=== PATIENT | female | born 1950 | race Caucasian/White ===

== ENCOUNTER 2024-08-04 09:30 | Day surgery (SDC) | payer MEDICARE, SELFPAY ==
[2024-08-03 15:24] VITALS: BMI 26.6
[2024-08-04] VITALS (8 sets, daily range): BP systolic 98–167; BP diastolic 65–87; PULSE 86–97; RESP 12–22; TEMP 36.2–36.6; O2SAT 95–99; BMI 26.6
[2024-08-04] MEDS: DiphenhydrAMINE INJ 50 MG/ML VIAL 25 MG IV (11:19)
[2024-08-04] MEDS: MIDAZOLAM INJ 1 MG/ML VIAL 2 ML (ASD USE ONLY) 2 MG IV (11:23)
[2024-08-04] MEDS: fentaNYL CIT INJ 50 mCg/ML AMP 2ML (ASD USE ONLY) IV (11:23)
--- NOTE | 2024-08-04 11:52 | SUR.PHASEII ---
1131: Pt received for recovery. Report from Manny ROME. Pt groggy. Easily aroused with eye opening. Resp even, unlabored. VS stable. No c/o pain, discomfort. 1153: Pt more awake, alert. Sitting up tolerating po fluids with no difficulty swallowing and no n/v.
--- NOTE | 2024-08-04 13:38 | SUR.PHASEII ---
1214: Pt fully awake, oriented x3. Pt assisted to restroom. Ambulation steady. Pt and stated understanding of discharge instructions. Pt discharged from [facility] in stable condition.
== END 2024-08-04 12:14 | disposition home or self-care (01) ==
PROVIDERS: PCP Registered Nurse General Practice; Referring Provider Specialist; Visit Provider Specialist
PROC: 0DBE8ZX Excision of Large Intestine, Via Natural or Artificial Opening Endoscopic, Diagnostic (ICD-10-PCS; CPT 45380; principal; 2024-08-04 09:30)
DX: K64.9 Unspecified hemorrhoids (principal); K57.30 Diverticulosis of large intestine without perforation or abscess without bleeding
CPT/HCPCS: 45330; J1200; J2250; J3010

== ENCOUNTER → 2024-09-11 | Outpatient (CLI) | payer MEDICARE, SELFPAY ==
[2024-09-11 10:28] LABS: Alanine Aminotransferase 21 U/L (10-49); Albumin, Serum 4.4 gm/dL (3.4-4.8); Albumin/Globulin Ratio 1.7 (1.2-2.2); Alkaline Phosphatase 55 U/L (46-116); Anion Gap 6 (7-16); Aspartate Amino Transferase 24 U/L (0-34); BUN/Creatinine Ratio 15 Ratio (12-20); Bilirubin,Total 0.5 mg/dL (0.3-1.2); Blood Urea Nitrogen 12 mg/dL (9-23); Calcium 10.5 mg/dL (8.3-10.6); Calcium (Corrected) 10.5 mg/dL (8.5-10.1); Carbon Dioxide 30.1 mMol/L (20.0-31.0); Chloride 106 mMol/L (98-107); Creatinine (Component) 0.8 mg/dL (0.6-1.3); Globulin 2.6 gm/dL (2.3-3.5); Glucose 83 mg/dL (74-106); Osmolality,Calculated 281 (275-295); Potassium 4.6 mMol/L (3.4-5.1); Sodium 142 mMol/L (136-145); eGFR > 60 See Note
== END | disposition home or self-care (01) ==
LOC: COPL 09:22
PROVIDERS: PCP Registered Nurse General Practice; Referring Provider Specialist; Visit Provider Specialist
DX: Z01.810 Encounter for preprocedural cardiovascular examination (principal)
CPT/HCPCS: 36415; 80053

== ENCOUNTER → 2024-09-19 | Outpatient (CLI) | payer MEDICARE, SELFPAY ==
--- NOTE | 2024-09-19 09:54 | XR_ITS ---
Examination: CT abdomen with intravenous contrast CT pelvis with intravenous contrast 2-D coronal reconstructions 2-D sagittal reconstructions Date and time of exam:September 19, 2024 1120 hours INDICATIONS: Unsuccessful colonoscopy one month ago, left lower abdominal pain beginning 6 months ago. CTDI: vol (mGy) 18.3 DLP: (mGycm) 618 Technique: Multiple axial sections of the abdomen and pelvis have been obtained. 64 slice high-resolution scanner used. 3 mm axial sections have been obtained, post intravenous injection 60 cc Isovue-370, also 30 cc dilute Gastrografin administered 2-D sagittal, coronal reconstructions obtained. Low dose protocols were performed. One or more of the following dose reduction techniques were used; automated exposure control, adjustment of the mA and/or KV according to patient size, use of iterative reconstruction technique. 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, axial image 1, the largest nodular density 12 mm Mitral valvular calcification Upper posterior right lobe liver lesion 20 mm No biliary tract dilatation No gallstones Spleen not enlarged Gastric sutures No pancreatic mass No adrenal mass Mild to moderate bilateral renal parenchymal scar formation, no hydronephrosis renal or ureteral calculi Abdominal aortic calcification no aneurysmal dilatation No pericecal inflammatory change A few loops of mildly contrast distended small bowel in the left abdomen No diverticulitis No nonspecific colitis pattern Abnormal sigmoid colon, diffuse wall thickening with scattered diverticula Suspicious for early acute diverticulitis Cystic mass in the posterior right pelvis, 4.1 cm Urinary bladder shows irregular wall thickening up to 5 mm Severe osteopenia with significant disc narrowing L4-L5, L5-S1 IMPRESSION: 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
== END | disposition home or self-care (01) ==
PROVIDERS: PCP Specialist; Referring Provider Specialist; Visit Provider Specialist
DX: R91.8 Other nonspecific abnormal finding of lung field (principal); K76.9 Liver disease, unspecified; K63.89 Other specified diseases of intestine; N32.89 Other specified disorders of bladder
CPT/HCPCS: 74177; A4649; Q9963; Q9967

== ENCOUNTER → 2024-11-22 | Outpatient (CLI) | payer MEDICARE, SELFPAY ==
--- NOTE | 2024-11-22 09:42 | XR_ITS ---
Examination: PA lateral chest 2 views Technique: Upright PA lateral chest 2 views Exam date and time: November 22, 2024 1002 hrs. Indications: Shortness of breath this week Findings: Dense consolidation in the right upper lobe Normal heart size The osseous structures are intact Impression: Dense consolidation, 3.8 cm right upper lobe, recommend CT chest without contrast follow-up to exclude right upper lobe pulmonary mass lesion
[2024-11-22 11:43] LABS: Alanine Aminotransferase 18 U/L (10-49); Albumin, Serum 4.5 gm/dL (3.4-4.8); Albumin/Globulin Ratio 1.7 (1.2-2.2); Alkaline Phosphatase 54 U/L (46-116); Anion Gap 9 (7-16); Aspartate Amino Transferase 23 U/L (0-34); BUN/Creatinine Ratio 15 Ratio (12-20); Bilirubin,Total 0.6 mg/dL (0.3-1.2); Blood Urea Nitrogen 12 mg/dL (9-23); Carbon Dioxide 26.8 mMol/L (20.0-31.0); Chloride 103 mMol/L (98-107); Creatinine (Component) 0.8 mg/dL (0.6-1.3); Globulin 2.6 gm/dL (2.3-3.5); Glucose 89 mg/dL (74-106); Osmolality,Calculated 276 (275-295); Potassium 4.4 mMol/L (3.4-5.1); Sodium 139 mMol/L (136-145); Total Protein 7.1 gm/dL (5.7-8.2); eGFR > 60 See Note
== END | disposition home or self-care (01) ==
PROVIDERS: PCP Registered Nurse General Practice; Referring Provider Specialist; Visit Provider Specialist
DX: R91.8 Other nonspecific abnormal finding of lung field (principal); I10 Essential (primary) hypertension; D50.9 Iron deficiency anemia, unspecified; R10.30 Lower abdominal pain, unspecified; R10.10 Upper abdominal pain, unspecified; K57.30 Diverticulosis of large intestine without perforation or abscess without bleeding
CPT/HCPCS: 36415; 71046; 80053; 82105